=== PATIENT | female | born 1990 | race Two or more races ===

== ENCOUNTER 2020-08-13 16:37 | Inpatient (IN) | payer MEDICAID ==
[~2020-08-13] VITALS: Ht 167.6 cm; Wt 65.8 kg
--- NOTE | 2020-08-13 17:05 | NUR ---
CONTROLLER INSTRUCTOR NOTE RECEIVED PATIENT VIA GURNEY. PATIENT IS A/O X4, BREATHING EVENLY AND UNLABORED ON ROOM AIR. VITAL SIGNS ARE: BP 116/76, HR 73, RR 18, O2 98%. PATIENT HAS IV ACCESS ON RAC 20 GAUGE PATENT AND INTACT. PATIENT HAS BEEN NPO ASIDE FROM TWO CUPS OF WATER AT 1130 PER PATIENT. PATIENT'S SKIN IS INTACT WARM AND DRY. PATIENT IS AMBULATORY. PATIENT'S BELONGINGS WERE ACCOUNTED FOR. PATIENT WAS ORIENTED TO THE ROOM AND SHOWN HOW TO USE CALL LIGHT. SAFETY MEASURES ARE IN PLACE BED LOW LOCKED AND CALL LIGHT WITHIN REACH. WILL NOTIFY MD OF ARRIVAL TO THE UNIT . WILL CONTINUE TO MONITOR
[2020-08-13] MEDS: IV NS 0.9% 1,000 ML IV PRN (17:29)
[2020-08-13] MEDS ORDERED: Z GUARD REMEDY 2 OZ OINT TP PRN (17:30)
[2020-08-13] MEDS ORDERED: MAG HYDROX/AL HYDROX/SIMETH 30 ML UDC PO PRN (17:30)
[2020-08-13] MEDS ORDERED: MAGNESIUM HYDROXIDE 30 ML UDC PO PRN (17:30)
[2020-08-13 17:52] LABS: CALCIUM, SERUM 7.8 mg/dL (8.5-10.1); CREATININE 0.9 mg/dL (0.6-1.3); POTASSIUM 4.1 mmol/L (3.5-5.1)
[2020-08-13] MEDS ORDERED: ZOSYN IVPB 3.375 G in IV D5W 50ml IV ONE (18:00)
[2020-08-13 18:16] LABS: BILIRUBIN,DIRECT 0.2 mg/dL (0.0-0.2); BILIRUBIN,TOTAL 0.6 mg/dL (0.2-1.0); TOTAL PROTEIN, SERUM 6.2 g/dL (6.4-8.2)
--- NOTE | 2020-08-13 18:43 | NUR ---
RN CLOSING NOTE PATIENT IS IN BED RESTING. PATIENT IS A/O X4, BREATHING EVENLY AND UNLABORED ON ROOM AIR. PATIENT HAS IV ACCESS ON RAC 20 GAUGE PATENT AND INTACT, NS @ 75ML/HR. NO COMPLAINTS OF PAIN OR DISTRESS NOTED. PATIENT'S SKIN IS INTACT WARM AND DRY. PATIENT IS AMBULATORY. SAFETY MEASURES ARE IN PLACE BED LOW LOCKED AND CALL LIGHT WITHIN REACH. WILL ENDORSE TO ONCCOMING SHIFT.
--- NOTE | 2020-08-13 19:30 | NUR ---
RN OPENING NOTE REPORT RECIEVED FROM SHASHA WILBURN. PATIENT IN BED RESTING. PATIENT IS A/O X4, BREATHING EVENLY AND UNLABORED ON ROOM AIR. PATIENT HAS IV ACCESS ON RAC 20 GAUGE PATENT AND INTACT, NS @ 75ML/HR. REPORTS SHE HAS ALAN AT THIS TIME BUT DENIES ABD PAIN. PATIENT'S SKIN IS INTACT WARM AND DRY. PATIENT IS AMBULATORY. SAFETY MEASURES ARE IN PLACE BED LOW LOCKED AND CALL LIGHT WITHIN REACH. VERBALIZED UNDERSTANDING TO CALL FOR ASSISTANCE IF NEEDED.
[2020-08-13 20:00] VITALS: BP 102/62
[2020-08-13] MEDS: ACETAMINOPHEN 325 MG TABLET PO PRN (20:07)
--- NOTE | 2020-08-14 | NUR ---
SPOKE WITH EDSON; NEW ORDERS RECIEVED FOR HIDA SCAN;NPO AFTER [facility] devante argueta bronc breaker called earlier around 2200 regarding consult. informed of patient condition. informed of ct abd result from [place], reviewed us abd results from [place]. new orders recieved for hida scan in the am. pt informed of procedure. consent signed. pt verbalizes understanding to be npo at this time for test. will cont to monitor.
[2020-08-14] MEDS: ZOSYN IVPB 3.375 G in IV D5W 50ml IV SCH ×4 (00:08→17:50)
[2020-08-14] MEDS: IV NS 0.9% 1,000 ML IV PRN (05:07)
[2020-08-14 06:25] LABS: BASOPHILS % (AUTO) 0.7 % (0.0-2.0); EOSINOPHILS % (AUTO) 1.8 % (0.0-6.0); HEMATOCRIT 33 % (33-45); LYMPHOCYTES # (AUTO) 0.9 /CMM (0.8-4.8); LYMPHOCYTES % (AUTO) 47.6 % (20.0-44.0); MEAN CORPUSCULAR HGB CONC 34 g/dl (31.0-36.0); MEAN CORPUSCULAR VOLUME 94 fL (82-100); MONOCYTES # (AUTO) 0.3 /CMM (0.1-1.30); MONOCYTES % (AUTO) 17.6 % (2.0-12.0); NEUTROPHILS # (AUTO) 0.6 /CMM (1.8-8.9); NEUTROPHILS % (AUTO) 32.3 % (43.0-81.0); PLATELET COUNT (AUTO) 184 /CMM (150-450); RED BLOOD CELL COUNT(AUTO) 3.52 MIL/uL (4.0-5.2)
[2020-08-14 06:48] LABS: WHITE BLOOD COUNT (AUTO) 1.9 K/uL (4.3-11.0)
--- NOTE | 2020-08-14 06:55 | NUR ---
froilan contacted notified of wbc 1.9 no new orders recieved.
[2020-08-14 07:24] LABS: ALBUMIN 2.8 g/dL (3.4-5.0); BILIRUBIN,DIRECT 0.2 mg/dL (0.0-0.2); BILIRUBIN,TOTAL 0.8 mg/dL (0.2-1.0); CALCIUM, SERUM 8.1 mg/dL (8.5-10.1); MAGNESIUM 1.9 mg/dL (1.8-2.4); PHOSPHORUS 3.3 mg/dL (2.5-4.9); POTASSIUM 3.7 mmol/L (3.5-5.1); TOTAL PROTEIN, SERUM 5.8 g/dL (6.4-8.2)
--- NOTE | 2020-08-14 07:30 | NUR ---
RN MS NOTES PT IN BED, ASLEEP, EASY TO AROUSE, ALERT AND ORIENTED, NO COMPLAINT AT THIS TIME, RESPIRATIONS NORMAL, CALL LIGHT WITHIN REACH, IV FLUIDS INFUSING WELL.
[2020-08-14 08:00] VITALS: BP 100/60
[2020-08-14 09:09] LABS: BAND % (MANUAL) 4 % (0.0-5.0); EOSINOPHILS % (MANUAL) 4 % (0-4); LYMPHOCYTES % (MANUAL) 44 % (16-48); MONOCYTES % (MANUAL) 15 % (0-11.0); NEUTROPHILS % (MANUAL) 33 (42-76)
[2020-08-14] MEDS: ACETAMINOPHEN 325 MG TABLET PO PRN ×3 (09:13→22:53)
--- NOTE | 2020-08-14 09:55 | NUR ---
RN MS NOTES PT SEEN AND EXAMINED BY SHARON DOMINGUEZ LABORATORY ASSOCIATE, PLAN OF CARE DISCUSSED WITH PT, VERBALIZED UNDERSTANDING.
[2020-08-14 11:09] LABS: BASOPHILS % (AUTO) 0.4 % (0.0-2.0); EOSINOPHILS % (AUTO) 0.6 % (0.0-6.0); HEMATOCRIT 35 % (33-45); HEMOGLOBIN 11.7 g/dL (11.5-14.8); LYMPHOCYTES # (AUTO) 0.7 /CMM (0.8-4.8); LYMPHOCYTES % (AUTO) 28.1 % (20.0-44.0); MEAN CORPUSCULAR HGB CONC 34 g/dl (31.0-36.0); MEAN CORPUSCULAR VOLUME 94 fL (82-100); MONOCYTES # (AUTO) 0.4 /CMM (0.1-1.30); MONOCYTES % (AUTO) 15.4 % (2.0-12.0); NEUTROPHILS # (AUTO) 1.4 /CMM (1.8-8.9); NEUTROPHILS % (AUTO) 55.5 % (43.0-81.0); PLATELET COUNT (AUTO) 195 /CMM (150-450); RED BLOOD CELL COUNT(AUTO) 3.71 MIL/uL (4.0-5.2); WHITE BLOOD COUNT (AUTO) 2.6 K/uL (4.3-11.0)
[2020-08-14] MEDS: MORPHINE SULFATE INJ 2 MG/ML DISP.SYRIN IV PRN ×2 (13:21→20:23)
[2020-08-14 16:00] VITALS: BP 112/79
[2020-08-14] MEDS: PANTOPRAZOLE 40 MG VIAL IV SCH (16:35)
[2020-08-14] MEDS: ONDANSETRON HCL/PF 4 MG/2 ML VIAL IVP PRN ×2 (16:36→17:13)
--- NOTE | 2020-08-14 18:39 | NUR ---
RN MS NOTES PT IN BED, AWAKE, ALERT AND ORIENTED, NO COMPLAINT AT THIS TIME, PT COMPLETED HIDA SCAN, TOLERATED WELL, STARTED ON FULL LIQUID DIET, HAD ONE EPISODE OF N/V, ZOFRAN GIVEN ORDERED, VERBALIZED RELIEF, HIDA SCAN RESULTS RELAYED TO DR. SANDHU, NEW ORDERS GIVEN, NOTED AND CARRIED OUT.
[2020-08-14 20:00] VITALS: BP 108/67
--- NOTE | 2020-08-14 20:15 | NUR ---
REPORTS GIVEN TO AKILA URIBE FOR TAHIR.
--- NOTE | 2020-08-14 20:20 | NUR ---
MS/RN OPENING NOTE RECEIVED PATIENT RESTING IN BED. AWAKE, ALERT AND ORIENTED X 4. ABLE TO MAKE NEEDS KNOWN. C/O ABDOMINAL PAIN 11/07 - WILL ADMINISTER PAIN MEDICATION. IV ACCESS TO RIGHT AC INTACT, PATENT AND SALINE LOCKED. CONTINUES ON IV ABX. PATIENT CONTINUES WITH NAUSEA - WILL ADMINISTER ZOFRAN WHEN DUE. CALL LIGHT WITHIN REACH. ASPIRATION, FALL AND SAFETY PRECAUTIONS MAINTAINED. WILL CONTINUE TO MONITOR.
--- NOTE | 2020-08-14 20:39 | NUR ---
MS/RN NOTE PATIENT VOMITED X 1. CONTINUES WITH NAUSEA. WATER AND PAIN MEDICATION PROVIDED. WILL ADMINISTER ZOFRAN WHEN DUE.
[2020-08-15] MEDS: ZOSYN IVPB 3.375 G in IV D5W 50ml IV SCH ×5 (01:00→23:54)
[2020-08-15] MEDS: ACETAMINOPHEN 325 MG TABLET PO PRN ×2 (06:17→13:10)
--- NOTE | 2020-08-15 06:30 | NUR ---
MS/RN CLOSING NOTE PATIENT CURRENTLY RESTING IN BED. AWAKE, ALERT AND ORIENTED X 4. ABLE TO MAKE NEEDS KNOWN. NO COMPLAINTS OF PAIN AT THIS TIME. IV ACCESS TO RIGHT AC INTACT AND PATENT. CONTINUES ON IV NS @ 75ML/HR. CONTINUES ON IV ABX. CONTINUES ON FULL LIQUID DIET. NO C/O NAUSEA/VOMITING AT THIS TIME. PATIENT VOMITED X 1 THIS SHIFT. CALL LIGHT WITHIN REACH. ASPIRATION, FALL AND SAFETY PRECAUTIONS MAINTAINED. WILL ENDORSE PLAN OF CARE TO ONCOMING SHIFT.
[2020-08-15] MEDS: ONDANSETRON HCL/PF 4 MG/2 ML VIAL IVP PRN (06:54)
--- NOTE | 2020-08-15 07:55 | NUR ---
MS/RN OPENING NOTE RECEIVED PATIENT IN BED. AWAKE, ALERT AND ORIENTED X 4. ABLE TO MAKE NEEDS KNOWN. AMBULATORY WITH BRP. NO COMPLAINTS OF PAIN AT THIS TIME. IV ACCESS TO RIGHT AC INTACT AND PATENT. CONTINUES ON IV NS @ 75ML/HR. CONTINUES ON IV ABX. CONTINUES ON FULL LIQUID DIET. NAUSEA/VOMITING SUBSIDING AT THIS TIME. SAFETY PRECAUTIONS IN PLACE CALL. BED ON LOWEST POSITION, CALL LIGHT WITHIN REACH. WILL CONTINUE TO MONITOR FOR CONTINUITY OF CARE.
[2020-08-15 08:00] VITALS: BP 100/60
[2020-08-15] MEDS: HYDROCODONE/APAP 5/325MG TABLET PO PRN ×2 (09:21→17:10)
--- NOTE | 2020-08-15 11:11 | NUR ---
RN MS NOTES PT HAD EPISODES OF VOMITING AND DIARRHEA AND FEELING WEAK, INFORMED DR. JERILYN MD ORDERED GI CONSULT, OFFICE OF DR. BACK INFORMED.
[2020-08-15 11:30] LABS: BASOPHILS % (AUTO) 0.3 % (0.0-2.0); EOSINOPHILS % (AUTO) 0.1 % (0.0-6.0); HEMATOCRIT 36 % (33-45); HEMOGLOBIN 12.1 g/dL (11.5-14.8); LYMPHOCYTES # (AUTO) 0.6 /CMM (0.8-4.8); LYMPHOCYTES % (AUTO) 13.5 % (20.0-44.0); MEAN CORPUSCULAR HGB CONC 34 g/dl (31.0-36.0); MEAN CORPUSCULAR VOLUME 93 fL (82-100); MONOCYTES # (AUTO) 0.3 /CMM (0.1-1.30); MONOCYTES % (AUTO) 8.1 % (2.0-12.0); NEUTROPHILS # (AUTO) 3.3 /CMM (1.8-8.9); PLATELET COUNT (AUTO) 209 /CMM (150-450); RED BLOOD CELL COUNT(AUTO) 3.85 MIL/uL (4.0-5.2); WHITE BLOOD COUNT (AUTO) 4.2 K/uL (4.3-11.0)
[2020-08-15 11:43] LABS: ALBUMIN 3.3 g/dL (3.4-5.0); BILIRUBIN,DIRECT 0.2 mg/dL (0.0-0.2); CALCIUM, SERUM 8.8 mg/dL (8.5-10.1); CREATININE 0.9 mg/dL (0.6-1.3); MAGNESIUM 1.9 mg/dL (1.8-2.4); PHOSPHORUS 2.7 mg/dL (2.5-4.9); POTASSIUM 3.5 mmol/L (3.5-5.1); TOTAL PROTEIN, SERUM 6.7 g/dL (6.4-8.2)
--- NOTE | 2020-08-15 13:11 | NUR ---
RN MS NOTES RECEIVED PT'S FINAL URINE CX REPORT FROM DR. JERILYN ABURTO INFORMED, NO NEW ORDER.
[2020-08-15 16:00] VITALS: BP 100/60
[2020-08-15] MEDS: IV NS 0.9% 1,000 ML IV PRN (16:00)
[2020-08-15] MEDS: PANTOPRAZOLE 40 MG VIAL IV SCH (17:10)
--- NOTE | 2020-08-15 19:10 | NUR ---
MS RN OPENING NOTES: RECEIVED PATIENT RESTING IN BED, AWAKE. A/O X4. NO S/S OF DISTRESS NOTED. CALL LIGHT WITHIN REACH. BED IN LOWEST AND LOCKED POSITION. NO COMPLAIN OF PAIN.
--- NOTE | 2020-08-15 19:12 | NUR ---
MS/RN CLOSING NOTES PATIENT IN BED. AWAKE, ALERT AND ORIENTED X 4. ABLE TO MAKE NEEDS KNOWN. AMBULATORY WITH BRP. NO COMPLAINTS OF DISCOMFORTS AT THIS TIME. IV ACCESS TO RIGHT AC INTACT AND PATENT. CONTINUES ON IV NS @ 75ML/HR. CONTINUES ON IV ZOSYN ABX. CONTINUES ON FULL LIQUID DIET. TO BE SEEB FOR G.I. CONSULT. NO REPORTED NAUSEA/VOMITING AT THIS TIME.SAFETY PRECAUTIONS IN PLACE. BED ON LOWEST POSITION, CALL LIGHT WITHIN REACH. WILL ENDORSE TO THE NEXT SHIFT FOR CONTINUITY OF CARE.
[2020-08-15 20:00] VITALS: BP 101/62
--- NOTE | 2020-08-15 20:30 | NUR ---
MS WILBURN NOTES PT ALERT ORIENTED X4 ON ROOM AIR TOLERATING WELL. GONZALESIEND AT BEDSIDE. PT WAS SEEN BY MD CLEARED FOR DISCHARGE. PT GIVEN DISCHARGE INSTRUCTIONS BOTH VERBAL AND WRITTEN. ALL NURSING NEEDS AND QUESTIONS ANSWERED. PT BELONG LIST SIGNED AND CHECKED. PT LEFT WITH BOYFRIEND BOTH ESCORTED OUT OF THE UNIT. Addendum: 08/16/20 at 2306 by SANGITA AMNZO RN DATE OF DISCHARGE IS 08/16/20 NOT 08/15/20
--- NOTE | 2020-08-16 | NUR ---
LEFT FOREARM PERIPHERAL IV G20 INSERTED BY CHARGE NURSE SCOTT.
[2020-08-16] MEDS: ZOSYN IVPB 3.375 G in IV D5W 50ml IV SCH ×3 (05:51→17:57)
[2020-08-16 05:54] LABS: BASOPHILS % (AUTO) 0.5 % (0.0-2.0); EOSINOPHILS % (AUTO) 1.1 % (0.0-6.0); HEMATOCRIT 33 % (33-45); HEMOGLOBIN 11.2 g/dL (11.5-14.8); LYMPHOCYTES # (AUTO) 1.2 /CMM (0.8-4.8); LYMPHOCYTES % (AUTO) 42.6 % (20.0-44.0); MEAN CORPUSCULAR HGB CONC 34 g/dl (31.0-36.0); MEAN CORPUSCULAR VOLUME 92 fL (82-100); MONOCYTES # (AUTO) 0.4 /CMM (0.1-1.30); MONOCYTES % (AUTO) 13.8 % (2.0-12.0); NEUTROPHILS # (AUTO) 1.2 /CMM (1.8-8.9); PLATELET COUNT (AUTO) 189 /CMM (150-450); RED BLOOD CELL COUNT(AUTO) 3.54 MIL/uL (4.0-5.2); WHITE BLOOD COUNT (AUTO) 2.7 K/uL (4.3-11.0)
[2020-08-16] MEDS: IV NS 0.9% 1,000 ML IV PRN (05:58)
[2020-08-16 06:07] LABS: CALCIUM, SERUM 8.1 mg/dL (8.5-10.1); CREATININE 0.9 mg/dL (0.6-1.3); POTASSIUM 3.3 mmol/L (3.5-5.1)
[2020-08-16 06:08] LABS: ALBUMIN 2.8 g/dL (3.4-5.0); BILIRUBIN,DIRECT 0.2 mg/dL (0.0-0.2); BILIRUBIN,TOTAL 0.8 mg/dL (0.2-1.0); MAGNESIUM 1.7 mg/dL (1.8-2.4); PHOSPHORUS 3.3 mg/dL (2.5-4.9); TOTAL PROTEIN, SERUM 5.9 g/dL (6.4-8.2)
--- NOTE | 2020-08-16 06:18 | NUR ---
MS RN CLOSING NOTES: PATIENT IN BED, ASLEEP, AROUSABLE. NO S/S OF DISTRESS NOTED. CALL LIGHT WITHIN REACH. BED IN LOWEST AND LOCKED POSITION. AMBULATORY. RESTED THROUGHOUT THE NIGHT. NO NAUSEA OR VOMITING NOTED. VITALS STABLE.
--- NOTE | 2020-08-16 07:21 | NUR ---
MS RN OPENING NOTES RECEIVED PATIENT AWAKE IN BED IN NO ACUTE SIGNS OF DISTRESS. A/O X 4. ABLE TO MAKE NEEDS KNOWN, DENIES PAIN OR ANY DISCOMFORTS AT THIS TIME. ON ROOM, TOLERATING WELL WITH NO SOB NOTED. PIV'S ON RAC G#20 AND LFA G#20 BOTH INTACT AND PATENT, IVF OF NS @ 75ML/HR INFUSING WELL. SAFETY PRECAUTIONS IN PLACE: BED IN LOWEST LOCKED POSITION, SR UP X2 AND CALL LIGHT WITHIN REACH. WILL CONTINUE TO MONITOR PT ACCORDINGLY.
[2020-08-16 08:00] VITALS: BP 104/64
[2020-08-16 08:50] LABS: EOSINOPHILS % (MANUAL) 2 % (0-4); LYMPHOCYTES % (MANUAL) 43 % (16-48); MONOCYTES % (MANUAL) 19 % (0-11.0); NEUTROPHILS % (MANUAL) 36 (42-76)
[2020-08-16] MEDS: Magnesium 1GM/D5W 100ML PREMIX 100 ML IV SCH ×2 (09:20→10:41)
[2020-08-16] MEDS ORDERED: POTASSIUM CHLORIDE 20 MEQ TAB.PRT.SR PO ONE (10:00)
--- NOTE | 2020-08-16 10:48 | NUR ---
RN NOTES PT NOTED WITH LOW LEVEL MAGNESIUM 1.7 AND POTASSIUM 3.3. ADMINISTERED MG 1MG/100ML X2 BAGS AND KDUR 20 MEQ ORDERED. WILL CONTINUE TO MONITOR.
--- NOTE | 2020-08-16 13:08 | NUR ---
RN NOTES CALLED AND SPOKE TO DR BACK REGARDING PT'S GI CONSULT. HE SAID THAT HE WILL COME TO SEE PT THIS AFTERNOON.
[2020-08-16 16:00] VITALS: BP 100/62
[2020-08-16] MEDS: PANTOPRAZOLE 40 MG VIAL IV SCH (16:16)
--- NOTE | 2020-08-16 18:45 | NUR ---
MS RN CLOSING NOTES PATIENT IN BED AWAKE AND WATCHING TV AT THIS TIME. BOYFRIEND AT BEDSIDE. A/O X 4. ABLE TO MAKE NEEDS KNOWN. ON ROOM, TOLERATING WELL WITH NO SOB NOTED DURING THE DAY. PIV'S ON RAC G#20 AND LFA G#20 BOTH INTACT AND PATENT, IVF OF NS @ 75ML/HR INFUSING WELL TO LFA. SAFETY PRECAUTIONS IN PLACE: BED IN LOWEST LOCKED POSITION, SR UP X2 AND CALL LIGHT WITHIN REACH. ALL NEEDS AND CARE ATTENDED WELL. PT OK TO DC ONCE CLEARED BY GI. WILL ENDORSE TO MED PEDS NURSE.
--- NOTE | 2020-08-16 19:57 | NUR ---
MS RN NOTES PATIENT IN BED AWAKE AND WATCHING TV AT THIS TIME. BOYFRIEND AT BEDSIDE. A/O X 4. ABLE TO MAKE NEEDS KNOWN. ON ROOM, TOLERATING WELL WITH NO SOB NOTED DURING THE DAY. IV'S ON RAC G#20 AND LFA G#20 BOTH INTACT AND PATENT, IVF OF NS @ 75ML/HR INFUSING WELL TO LFA. SAFETY PRECAUTIONS IN PLACE: BED IN LOWEST LOCKED POSITION, SR UP X2 AND CALL LIGHT WITHIN REACH. ALL NEEDS AND CARE ATTENDED WELL. WILL CONTINUE TO MONITOR.
[2020-08-16 20:00] VITALS: BP 108/67
== END 2020-08-16 21:30 | disposition home or self-care (01) ==
LOC: TELE 16:37 → MED 16:58
PROVIDERS: ADMIT Internal Medicine; ATTEND Internal Medicine
DX: K80.20 Calculus of gallbladder without cholecystitis without obstruction (principal); K65.9 Peritonitis, unspecified; D64.9 Anemia, unspecified; D72.819 Decreased white blood cell count, unspecified; R74.01 Elevation of levels of liver transaminase levels
CPT/HCPCS: 36415; 78226; 80048-TC; 80074; 80076-TC; 83735-TC; 84100-TC; 84703-TC; 85025-TC; 87081-TC; A9537; C9113; G0378; J2270; J2405; J2543; J3475; J7030; J7060

== ENCOUNTER 2020-09-11 23:40 | Emergency (ER) | payer MEDICAID ==
[~2020-09-11] VITALS: Ht 167.6 cm; Wt 65.8 kg
--- NOTE | 2020-09-11 23:56 | NUR ---
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 PATIENT STATES THAT SHE HAS GALLBLADDER ISSUES. PATIENT CONNECTED TO MONITOR FOR MONITORING. PATIENT IS BREATHING EVENLY AND UNLABORED ON ROOM AIR.
[2020-09-12] MEDS ORDERED: MORPHINE SULFATE INJ 4 MG/ML DISP.SYRIN ONE (00:44)
[2020-09-12] MEDS ORDERED: ONDANSETRON HCL/PF 4 MG/2 ML VIAL ONE (00:44)
[2020-09-12 00:47] LABS: BASOPHILS % (AUTO) 0.1 % (0.0-2.0); EOSINOPHILS % (AUTO) 0.1 % (0.0-6.0); HEMATOCRIT 37 % (33-45); HEMOGLOBIN 12.4 g/dL (11.5-14.8); LYMPHOCYTES # (AUTO) 0.6 /CMM (0.8-4.8); LYMPHOCYTES % (AUTO) 7.7 % (20.0-44.0); MEAN CORPUSCULAR HGB CONC 34 g/dl (31.0-36.0); MEAN CORPUSCULAR VOLUME 91 fL (82-100); MONOCYTES # (AUTO) 0.7 /CMM (0.1-1.30); MONOCYTES % (AUTO) 8.7 % (2.0-12.0); NEUTROPHILS # (AUTO) 6.6 /CMM (1.8-8.9); NEUTROPHILS % (AUTO) 83.4 % (43.0-81.0); PLATELET COUNT (AUTO) 225 /CMM (150-450); RED BLOOD CELL COUNT(AUTO) 4.02 MIL/uL (4.0-5.2); WHITE BLOOD COUNT (AUTO) 7.9 K/uL (4.3-11.0)
[2020-09-12 00:55] LABS: CALCIUM, SERUM 8.8 mg/dL (8.5-10.1); CREATININE 0.9 mg/dL (0.6-1.3); POTASSIUM 3.3 mmol/L (3.5-5.1)
[2020-09-12] MEDS ORDERED: ONDANSETRON HCL/PF 4 MG/2 ML VIAL IVP ONE (01:00)
[2020-09-12] MEDS ORDERED: IV NS 0.9% 1,000 ML BAG IV ONE (01:00)
[2020-09-12] MEDS ORDERED: MORPHINE SULFATE INJ 2 MG/ML DISP.SYRIN IV ONE (01:00)
[2020-09-12 01:02] LABS: ALBUMIN 3.8 g/dL (3.4-5.0); BILIRUBIN,DIRECT 0.5 mg/dL (0.0-0.2); BILIRUBIN,TOTAL 1.1 mg/dL (0.2-1.0); TOTAL PROTEIN, SERUM 7.4 g/dL (6.4-8.2)
[2020-09-12] MEDS ORDERED: TRAM50TA2 PO (01:20)
--- NOTE | 2020-09-12 02:49 | NUR ---
IV removed. Catheter intact and site benign. Pressure and 4x4 applied to site. No bleeding noted.
--- NOTE | 2020-09-12 02:49 | NUR ---
Patient discharged to home in stable condition. Written and verbal after care instructions given. Patient verbalizes understanding of instruction.
[2020-09-12 03:01] VITALS: BP 124/71
== END 2020-09-12 03:02 | disposition home or self-care (01) ==
LOC: ER 23:43
DX: K80.20 Calculus of gallbladder without cholecystitis without obstruction (principal); R11.2 Nausea with vomiting, unspecified; Z88.6 Allergy status to analgesic agent
CPT/HCPCS: 36415; 80048; 80076; 83690; 85025; 96361; 96374; 96375; 99284; J2270; J2405; J7030